=== PATIENT | male | born 1955 | race Caucasian/White ===

== ENCOUNTER 2023-02-15 11:16 | Outpatient (CLI) | payer MEDICARE, SELFPAY | END 2023-02-15 11:17 | disposition home or self-care (01) | PROVIDERS: PCP Family Medicine; Visit Provider Family Medicine | DX: Z00.00 Encounter for general adult medical examination without abnormal findings (principal); I10 Essential (primary) hypertension; L71.9 Rosacea, unspecified; F10.10 Alcohol abuse, uncomplicated | CPT/HCPCS: 80061; 80076; 84153 ==

== ENCOUNTER 2024-07-16 12:57 | Emergency (ER) | payer MEDICARE, SELFPAY ==
[2024-07-16 13:03] VITALS: BP 177/85; PULSE 92; RESP 16; TEMP 37.1; O2SAT 97; BMI 27.4
--- NOTE | 2024-07-16 13:49 | CRLHL7_ITS ---
For Patients: As a result of the Century Cures Act, medical imaging exams and procedure reports are released immediately into your electronic medical record. You may view this report before your referring provider. If you have questions, please contact your health care provider. INDICATION: Left flank and abdominal pain for 2 weeks, progressively getting worse.. TECHNIQUE: CT abdomen and pelvis without contrast. COMPARISON: None. FINDINGS: Limited evaluation of the intra-abdominal solid organs without IV contrast. Lower chest: Bibasilar linear opacities likely atelectasis or scarring. Liver: Hypodensity in the liver measuring approximally 23 millimeters in diameter, likely cyst or hemangioma. Gallbladder and bile ducts: Unremarkable. No intra or extrahepatic biliary ductal dilatation. Pancreas: Unremarkable. No mass or inflammation. Spleen: Normal in size. No masses. Adrenal glands: Normal in size. No nodules. Kidneys: Normal in size. No suspicious masses, stones, or hydronephrosis. GI tract: Colonic diverticulosis without evidence of diverticulitis. Appendix is within normal limits. No bowel obstruction. Vasculature: Partially calcified splenic artery aneurysm measuring 8 millimeters.. Lymph nodes: No lymphadenopathy. Peritoneum/Abdominal Wall: Tiny fat containing umbilical hernia. No sign of mass or infiltration. No free air or significant free fluid. Pelvis: Wall thickening in the bladder. Coarse calcifications in the prostate. Bones: Unremarkable for age. IMPRESSION: 1. No acute intra-abdominal process identified. No renal or ureteral stones. No hydronephrosis or hydroureter. 2. Circumferential wall thickening of the bladder. Correlate with UA for cystitis. Please note that all CT scans at this facility use dose modulation, iterative reconstruction, and/or weight-based dosing when appropriate to reduce radiation dose to as low as reasonably achievable. Dictated by Valente Turpin MD @ 07/16/2024 3:10:40 PM (Electronically Signed)
[2024-07-16 13:56] LABS: Appearance Urine Clear (Clear); Bilirubin Urine Negative (Negative); Blood Urine Negative (Negative); Color Urine Yellow (Yellow); Glucose Urine Negative (Negative); Ketones Urine Negative (Negative); Leukocyte Esterase Urine Trace (Negative); Nitrite Urine Negative (Negative); Protein Urine Negative (Negative); Urobilinogen Urine 0.2 (0.2-1.0)
[2024-07-16 14:06] LABS: RBC Urine 0-2 (0-2); WBC Urine 0-2 (0-5)
--- NOTE | 2024-07-16 14:06 | ED.GENADULT ---
HPI - General Adult General Chief complaint: Flank Pain Stated complaint: F flank/back pain Time Seen by Provider: 07/16/24 13:13 History of Present Illness HPI narrative: This 69-year-old male comes in reporting left flank pain for the past couple weeks. 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 He does not report any fever or dysuria symptoms. He does not have any personal or family history of kidney stones. He reports pain in the left lower back that sometimes radiates around into his left groin. Related Data Previous Rx's ?Medication ?Instructions ?Recorded fluticasone furoate 27.5 2 spray intranasal QDAY #9.1 mL 02/15/23 mcg/actuation nasal spray,suspension (Flonase Sensimist) doxycycline hyclate 100 mg capsule 100 mg PO BID #60 caps 08/15/23 ketorolac 10 mg tablet 10 mg PO Q8H 5 days #15 tabs 07/16/24 methylprednisolone 4 mg tablets in See Rx Instructions PO .COMPLEX 07/16/24 a dose pack (Medrol (Johnny)) #21 ea Allergies Allergy/AdvReac Type Severity Reaction Status Date / Time Penicillins Allergy Mild Unknown Verified 02/15/23 10:56 Review of Systems Status of ROS: Reports: 10 or more systems reviewed and unremarkable except as noted in History and below Narrative: Constitutional: No fevers, no weight gain or loss. Eyes: No discharge. No vision changes. HENT: No congestion, no sore throat, no ear pain. Cardiovascular: No chest pain, no palpitations. Respiratory: No shortness of breath, no wheezes, no cough. Gastrointestinal: No vomiting, no diarrhea. Genitourinary: No dysuria, no hematuria. Musculoskeletal: Normal range of motion. Skin: No rashes, no pruritis. Neurological: No dizziness, weakness, sensory change, speech change. Endo/Heme/Allergies: No bruising or bleeding. No polydipsia. Pysch: no suicidality, no anxiety, no insomnia. All other systems reviewed and are negative. [facility] Medical History (Updated 07/16/24 @ 15:47 by Hai Birch MD) Rosacea ?L71.9 - Rosacea, unspecified (ICD-10) Hypertension ?I10 - Essential (primary) hypertension (ICD-10) Social History How often do you have a drink containing alcohol: 4 or more times a week How many standard drinks containing alcohol do you have on a typical day: 3 or 4 AUDIT-C Alcohol total score: 5 Exam Narrative: Exam Narrative: Constitutional: Well-developed, well-nourished, no acute distress. HEENT: Normocephalic, atraumatic. Neck: Normal range of motion. Nontender. Supple. Heart: Regular. No murmurs. Normal rate. Intact distal pulses. Lungs: Clear to auscultation. No chest discomfort. No wheezes, rhonchi, or rales. Abdomen: Normal bowel sounds. Nontender. No rebound tenderness. Genitalia: Deferred. Back: No midline tenderness. Normal range of motion. Extremities: Normal range of motion. No injury. Skin: Intact. No rash. Warm. No erythema or pallor. Neurologic: No altered sensation. No weakness. Alert and oriented. Psychiatric: No suicidality. No anxiety or depression. No insomnia. Nursing notes and vitals signs are reviewed. Const: Vital Signs, click to edit/add: Vital Signs - 24 hr 07/16/24 13:03 Temperature 98.7 F Pulse Rate [Pulse Oximeter] 92 Respiratory Rate 16 Blood Pressure [Ri ght Upper Arm] 177/85 H Pulse Oximetry 97 Oxygen Delivery Me thod Room Air Course Vital Signs Vital signs: Initial Vital Signs Temperature 98.7 F 07/16/24 13:03 Temperature Source Temporal Artery Scan 07/16/24 13:03 Pulse Rate 92 07/16/24 13:03 Respiratory Rate 16 07/16/24 13:03 Blood Pressure 177/85 H 07/16/24 13:03 Blood Pressure Mean 115 H 07/16/24 13:03 Blood Pressure Position Sitting 07/16/24 13:03 Pulse Oximetry 97 07/16/24 13:03 Oxygen Delivery Method Room Air 07/16/24 13:03 Vital Signs Temperature 98.7 F 07/16/24 13:03 Pulse Rate 92 07/16/24 13:03 Respiratory Rate 16 07/16/24 13:03 Blood Pressure 177/85 H 07/16/24 13:03 Pulse Oximetry 97 07/16/24 13:03 Oxygen Delivery Method Room Air 07/16/24 13:03 Temperature 98.7 F 07/16/24 13:03 Pulse Rate 92 07/16/24 13:03 Respiratory Rate 16 07/16/24 13:03 Blood Pressure 177/85 H 07/16/24 13:03 Pulse Oximetry 97 07/16/24 13:03 Oxygen Delivery Method Room Air 07/16/24 13:03 Medical Decision Making MDM Narrative Medical decision making narrative: This patient comes in reporting pain in his low back radiating sometimes around to his left groin region. He does not have any other symptoms and states that he can reproduce the symptoms with certain positions. He does not report any injury event or strenuous activity to trigger this. I did obtain a CT scan of his abdomen and pelvis without contrast in this shows no explanation for his symptoms. Urinalysis also is reassuring. This patient's symptoms are most likely musculoskeletal in nature. 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 He is okay to be discharged home and encouraged to follow up with his primary physician for evaluation of several other issues he brings up including blood pressure, skin changes, and Dupuytren's contracture of his left hand. He is discharged home with prescriptions for Toradol and Medrol Dosepak. Lab Data Labs: Lab Results 07/16/24 Range/Units 13:50 Urine Color Yellow (Yellow) Urine Appearance Clear (Clear) Urine pH 7.0 (5.0-8.5) Ur Specific [place] 1.010 (1.000-1.030) Urine Protein Negative (Negative) Urine Glucose (UA) Negative (Negative) Urine Ketones Negative (Negative) Urine Blood Negative (Negative) Urine Nitrite Negative (Negative) Urine Bilirubin Negative (Negative) Urine Urobilinogen 0.2 (0.2-1.0) Ur Leukocyte Esterase Trace A (Negative) Urine RBC 0-2 (0-2) Urine WBC 0-2 (0-5) Ur Squamous Epith Cells Few (None-Few) Urine Bacteria None (None) Imaging Data CT scan - abdomen: Radiologist's impression: 1. No acute intra-abdominal process identified. No renal or ureteral stones. No hydronephrosis or hydroureter. 2. Circumferential wall thickening of the bladder. Correlate with UA for cystitis. Discharge Plan Discharge Clinical Impression: Back pain, Dupuytren contracture Patient Disposition: Home, Self-Care Condition: Stable Additional Instructions: Take medication as needed and directed. Follow up with MD return if worsening. Prescriptions: New ketorolac 10 mg tablet 10 mg PO Q8H 5 Days Qty: 15 0RF methylprednisolone [Medrol (Johnny)] 4 mg tablets,dose pack See Rx Instructions .ROUTE .COMPLEX Qty: 21 0RF Rx Instructions: orally per package directions No Action Flonase Sensimist 27.5 mcg/actuation spray,suspension 2 spray intranasal QDAY Qty: 9.1 6RF Rx Instructions: into each nostril doxycycline hyclate 100 mg capsule 100 mg PO BID Qty: 60 1RF Follow Up/Referrals: Darinel Bee MD [Primary Care Provider] - Stand Alone Forms: [facility] Info Instructions
[2024-07-16 14:07] LABS: Squamous Epithelial Cell Urine Few (None-Few)
== END 2024-07-16 15:55 | disposition home or self-care (01) ==
PROVIDERS: Emergency Provider Emergency Medicine Emergency Medical Services; PCP Family Medicine
DX: M54.9 Dorsalgia, unspecified (principal); M72.0 Palmar fascial fibromatosis [Dupuytren]
CPT/HCPCS: 74176; 81001; 87086; 99284